=== PATIENT | female | born 1985 | race African-American/Black ===

== ENCOUNTER 2018-08-01 10:57 | Emergency (ER) | payer OTHER ==
[2018-08-01] MEDS ORDERED: diPHENhydraMINE PO* 50 MG PO ONE (12:00)
[2018-08-01] MEDS ORDERED: predniSONE TAB* 20 MG PO ONE (12:00)
--- NOTE | 2018-08-01 12:06 | ED ---
Allergic Reaction/Systemic - HPI Summary HPI Summary: This patient is a 32 year old F presenting to ED with a chief complaint of allergic reaction since yesterday morning. Patient woke up yesterday and had hives on right elbow and knees. Patient woke up today swollen and with hives all over. She is starting to feel pain. Patient does not recall eating or doing anything different in the past few days. Patient has not taken any new medications. Patient did not take Benadryl but used lotion without success. Patient reports previously having hives but this time is much worse. The patient rates the pain 5/10 in severity. Symptoms aggravated by nothing. Symptoms alleviated by nothing. Patient denies wheezing, SOB. PMHx of no DM, HTN , asthma, COPD. 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 Patient occasionally drinks alcohol, uses marijuana, and smokes tobacco. - History of Current Complaint Chief Complaint: EDAllergicReaction Time Seen by Provider: 08/01/18 11:53 Hx Obtained From: Patient Hx Last Menstrual Period: mirana Onset/Duration: Sudden Onset, Started days ago - 2, Still Present, Worse Since Timing: Constant Severity Initially: Mild Severity Currently: Moderate Pain Intensity: 5 Pain Scale Used: 0-10 Numeric Location: Diffuse Character: Pruritus, Pain, Hives Aggravating Factor(s): Nothing Alleviating Factor(s): Nothing Associated Signs And Symptoms: Positive: Negative - SOB, Rash. 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 a teen Infectious Disease History: No Infectious Disease History: Denies: Hx Hepatitis, Hx Human Immunodeficiency Virus (HIV), Traveled Outside the [place] in Last 30 Days - Social History Alcohol Use: Occasionally Hx Substance Use: Yes Substance Use Type: Reports: Marijuana Hx Tobacco Use: Yes Smoking Status (MU): Heavy Every Day Tobacco Smoker Type: Cigarettes Review of Systems Respiratory: Negative - Wheezing Negative: Shortness Of Breath Skin: Other - Pruritus Positive: Rash All Other Systems Reviewed And Are Negative: Yes Physical Exam - Summary Physical Exam Summary: Appearance: Well appearing, no pain distress Skin: generalized maculopapular rash Head/face: normal Eyes: EOMI, PREET ENT: normal Neck: supple, non-tender Respiratory: CTA, breath sounds present Cardiovascular: RRR, pulses symmetrical Abdomen: non-tender, soft Musculoskeletal: normal, strength/ROM intact Neuro: normal, sensory motor intact, A&Ox3 Triage Information Reviewed: Yes Vital Signs On Initial Exam: Initial Vitals Temp Pulse Resp BP Pulse Ox 98.5 F 84 16 117/70 96 08/01/18 11:09 08/01/18 11:09 08/01/18 11:09 08/01/18 11:09 08/01/18 11:09 Vital Signs Reviewed: Yes Diagnostics - Vital Signs Vital Signs Temp Pulse Resp BP Pulse Ox 08/01/18 11:09 98.5 F 84 16 117/70 96 - Laboratory Result Diagrams: 08/01/18 12:10 08/01/18 12:10 Lab Statement: Any lab studies that have been ordered have been reviewed, and results considered in the medical decision making process. Re-Evaluation - Re-Evaluation First Eval Re-Evaluation Time: 13:48 Change: Improved Comment: Patient reports feeling better with treatment. Patient will be discharged home. Patient understands and agrees with this plan. Allergic Reaction Course/Dx - Course Course Of Treatment: This patient is a 32 year old F presenting to ED with a chief complaint of allergic reaction since yesterday morning. In the ED course, patient received Benadryl and Deltasone. Blood work obtained. In the ED, patient is feeling better. Patient will be discharged with dx of allergic reaction. She is hemodynamically stable and safe for discharge. Strict return precautions given and she will otherwise follow up with her PCP. - Diagnoses Differential Diagnosis/HQI/PQRI: Positive: Local Allergic Reaction, Urticaria Provider Diagnoses: Allergic reaction Discharge - Sign-Out/Discharge Documenting (check all that apply): Patient Departure - Discharge Patient Received Moderate/Deep Sedation with Procedure: No - Discharge Plan Condition: Stable Disposition: HOME Prescriptions: diPHENhydraMINE PO* [Benadryl PO 25 MG TAB*] 25 mg PO TID PRN #20 tab MDD 3 PRN Reason: Allergy Symptoms predniSONE TAB* [Deltasone TAB*] 50 mg PO ONCE #4 tab Patient Education Materials: Allergies (ED) Referrals: Zeenat Almaraz MD [Primary Care Provider] - 3 Days Additional Instructions: Follow-up with your primary care physician in 3 days. RETURN TO THE ER FOR WORSENING OR CHANGING SYMPTOMS. - Billing Disposition and Condition Condition: STABLE Disposition: Home - Attestation Statements Document Initiated by Scribe: Yes Documenting Scribe: Familia Javier Provider For Whom Jhon is Documenting (Include Credential): Nicola Humphrey MD Scribe Attestation: Familia Ellis, scribed for Nicola Humphrey MD on 08/01/18 at 1355. Scribe Documentation Reviewed: Yes Provider Attestation: The documentation as recorded by the Familia posey accurately reflects the service I personally performed and the decisions made by , Nicola Humphrey MD Status of Scribe Document: Viewed
[2018-08-01 12:25] LABS: ABS Lymphocytes 1.3 10^3/ul (1.0-4.8); ABS Monocytes 0.3 10^3/ul (0-0.8); ABS Neutrophils 7.9 10^3/ul (1.5-7.7); Eosinophil % 0.3 %; Hematocrit 38 % (35-47); Hemoglobin 12.9 g/dL (12.0-16.0); Lymphocyte % 13.5 %; Mean Corpuscular HGB Conc 34 g/dL (31-36); Mean Corpuscular Hemoglobin 33 pg (27-31); Mean Corpuscular Volume 96 fL (80-97); Mean Platelet Volume 7.7 fL (7.4-10.4); Nucleated Red Blood Cells % 0.1; Platelet Count 308 10^3/uL (150-450); Red Blood Count 3.96 10^6 /uL (3.70-4.87); Red Cell Distribution Width 13 % (10.5-15); White Blood Count 9.5 10^3/uL (3.5-10.8)
[2018-08-01 12:41] LABS: Albumin/Globulin Ratio 1.7 (1-3); BUN/Creatinine Ratio 18.1 (8-20); Calcium 8.8 mg/dL (8.6-10.3); EGFR Non-African American 69.5 (>60); Globulin 2.4 g/dL (2-4); Potassium 3.9 mmol/L (3.5-5.0); Total Bilirubin 0.5 mg/dL (0.2-1.0); Total Protein 6.4 g/dL (6.4-8.9)
[2018-08-01 14:28] VITALS: BP 102/58
== END 2018-08-01 14:27 | disposition home or self-care (01) ==
LOC: ED 10:57
DX: L50.9 Urticaria, unspecified (principal); T78.40XA Allergy, unspecified, initial encounter; X58.XXXA Exposure to other specified factors, initial encounter; F17.210 Nicotine dependence, cigarettes, uncomplicated
CPT/HCPCS: 36415; 80053; 85025; 99282; A9270-GY; J7512

== ENCOUNTER 2019-01-28 08:37 | Emergency (ER) | payer OTHER ==
--- NOTE | 2019-01-28 09:06 | ED ---
Throat Pain/Nasal Congestion - HPI Summary HPI Summary: 33 year old female presents to the ED with a chief complaint of flu-like symptoms starting 3 days ago. Patient reports feeling sore throat, rhinorrhea, shortness of breath, intermittent cough, subjective fever, and headache. Pt denies any chills, erythema of eyes, CP, abdominal pain, N/V, dysuria, hematuria , myalgia, edema, rash, or dizziness. Her period has been normal. Patient smokes tobacco. 7 year old son currently has strep throat for several days. Patient has missed work secondary to current illness for the last 2 days. Hx of bipolar disorder. - History of Current Complaint Chief Complaint: EDFluSymptoms Time Seen by Provider: 01/28/19 08:49 Hx Obtained From: Patient Onset/Duration: Lasting Days - 3 days ago, Still Present Severity: Moderate Associated Signs And Symptoms: Positive: Hoarseness, Nasal Discharge. 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 Negative: Chills Negative: Erythema Positive: Sore Throat, Nasal Discharge Negative: Chest Pain Positive: Shortness Of Breath, Cough Negative: Abdominal Pain, Vomiting, Nausea Negative: discharge, hematuria Negative: Myalgia Negative: Rash Neurological: Negative - neg - dizziness All Other Systems Reviewed And Are Negative: Yes Physical Exam - Summary Physical Exam Summary: Constitutional: Well-developed, Well-nourished, Alert. (-) Distressed. Skin: Warm, Dry HENT: Normocephalic; Atraumatic. No sinus tenderness. Rhinorrhea. Eyes: Conjunctiva normal Neck: Musculoskeletal ROM normal neck. (-) JVD, (-) Stridor, (-) Tracheal deviation Cardio: Rhythm regular, rate normal, Heart sounds normal; Intact distal pulses; Radial pulses are 2+ and symmetric. (-) Murmur Pulmonary/Chest wall: Effort normal. (-) Respiratory distress, (-) Wheezes, (-) Rales Abd: Soft, (-) tenderness, (-) Distension, (-) Guarding, (-) Rebound Musculoskeletal: (-) Edema Lymph: (-) Cervical adenopathy Neuro: Alert, Oriented x3 Psych: Mood and affect Normal Triage Information Reviewed: Yes Vital Signs On Initial Exam: Initial Vitals Temp Pulse Resp BP Pulse Ox 98.7 F 88 19 121/84 97 01/28/19 08:45 01/28/19 08:45 01/28/19 08:45 01/28/19 08:45 01/28/19 08:45 Vital Signs Reviewed: Yes Procedures - Sedation Patient Received Moderate/Deep Sedation with Procedure: No Diagnostics - Vital Signs Vital Signs Temp Pulse Resp BP Pulse Ox 01/28/19 08:45 98.7 F 88 19 121/84 97 - Laboratory Lab Statement: Any lab studies that have been ordered have been reviewed, and results considered in the medical decision making process. EENT Course/Dx - Course Course Of Treatment: 33 year old female presents to the ED with a chief complaint of flu-like symptoms starting 3 days ago. Patient reports feeling sore throat, rhinorrhea, shortness of breath, intermittent cough, subjective fever, and headache. Pt denies any chills, erythema of eyes, CP, abdominal pain , N/V, dysuria, hematuria, myalgia, edema, rash, or dizziness. Her period has been normal. Patient smokes tobacco. 7 year old son currently has strep throat for several days. Patient has missed work secondary to current illness for the last 2 days. Hx of bipolar disorder. Upon physical exam, the patient was sniffling. No sinus tenderness or wheezes. Influenza A and B tests returned negative. Rapid Group A strep test returned positive. Diagnosis is strep pharyngitis, for which I prescribed penicillin. In the ED course the patient was given albuterol and penicillin v potassium. Patient will be discharged home with follow up from PCP. The patient is agreeable with this plan. - Diagnoses Provider Diagnoses: Strep pharyngitis Discharge ED - Sign-Out/Discharge Documenting (check all that apply): Patient Departure - discharge - Discharge Plan Condition: Stable Disposition: HOME Prescriptions: Penicillin VK TAB* [Penicillin VK 250 mg Tab*] 500 mg PO BID #10 tab Patient Education Materials: Strep Throat (ED) Forms: *Work Release Referrals: Zeenat Almaraz MD [Primary Care Provider] - Additional Instructions: Follow up with your primary care provider in 2-3 days. Return to the Emergency Department if you experience new or worsened symptoms. - Attestation Statements Document Initiated by Scribe: Yes Documenting Scribe: Quintin Drake Provider For Whom Jhon is Documenting (Include Credential): Shivam Jameson MD. Scribe Attestation: Quintin Ellis scribed for Shivam Jameson MD. on 01/28/19 at 1020. Status of Scribe Document: Ready
[2019-01-28 09:22] LABS: Rapid Strep Molecular POSITIVE (Negative)
[2019-01-28] MEDS ORDERED: Albuterol HFA INHALER* 8 gm MDI INH ONE (09:22)
[2019-01-28 09:30] LABS: Influenza A Molecular NEGATIVE (Negative); Influenza B Molecular NEGATIVE (Negative)
[2019-01-28] MEDS ORDERED: Penicillin VK TAB* 250 MG PO ONE (10:04)
[2019-01-28 10:20] VITALS: BP 119/76
== END 2019-01-28 10:19 | disposition home or self-care (01) ==
LOC: ED 08:37
DX: J02.0 Streptococcal pharyngitis (principal); R06.02 Shortness of breath; J34.89 Other specified disorders of nose and nasal sinuses; R05 Cough; F17.210 Nicotine dependence, cigarettes, uncomplicated
CPT/HCPCS: 87651; 99282; A9270-GY

== ENCOUNTER 2024-02-02 12:26 | Inpatient (IN) ==
[2024-02-02 13:19] LABS: ABS Basophils 0.1 10^3/uL (0.0-0.1); ABS Eosinophils 0.1 10^3/uL (0.0-0.5); ABS Lymphocytes 1.7 10^3/uL (1.0-4.8); ABS Neutrophils 10.9 10^3/uL (1.5-7.6); ABS Nucleated RBC 0.11 10^3/ul; Eosinophil % 0.8 %; Hematocrit 24.3 % (35-45); Hemoglobin 8.2 g/dL (11.5-14.3); Lymphocyte % 12.4 %; Mean Corpuscular Hemoglobin 29.9 pg (27-33); Mean Corpuscular Hgb Conc 33.7 g/dL (31-36); Mean Corpuscular Volume 88.9 fL (80-97); Nucleated Red Blood Cells % 0.8 %/100WBC (0.0-0.8); Platelet Count 306 10^3/uL (150-450); Red Blood Count 2.74 10^6/uL (3.63-4.92); Red Cell Distribution Width 14.3 % (12-17); White Blood Count 13.8 10^3/uL (3.8-11.8)
[2024-02-02 13:38] LABS: Urine Benzodiazepine Screen None Detected (None Detect); Urine Cannabinoids Screen Presumptive Positive (None Detect); Urine Opiates Screen None Detected (None Detect)
[2024-02-02 13:42] LABS: Urine Creatinine Concentration 137.84 mg/dL (20.00-320.00); Urine TP Creat Ratio 0.26 mg/mg
[2024-02-02] MEDS ORDERED: Lidocaine 1% VIAL 10 MG/ML 30 ML VIAL INJ PRN (13:59)
[2024-02-02 14:11] LABS: Albumin 3.3 g/dL (3.2-5.2); Albumin/Globulin Ratio 1.3 (1-3); Calcium 8.8 mg/dL (8.6-10.3); Creatinine, Serum 0.8 mg/dL (0.51-0.95); Globulin 2.6 g/dL (2-4); Potassium 4.5 mmol/L (3.5-5.0); Total Bilirubin 0.3 mg/dL (0.2-1.0); Total Protein 5.9 g/dL (6.4-8.9); eGFR CKD-EPI 97.3 (>60)
[2024-02-02] MEDS: Buffered Lidocaine 1% SYRIN 1 ml INTRADERM ONE (15:23)
[2024-02-02] MEDS: Oxytocin in LR 20,000 MILLI.UNIT/1,000 ML BAG IV SCH (15:48)
[2024-02-02] MEDS: Penicillin G Potassium IV 5,000,000 UNITS in NS 0.9% 100 ml BAG 100 ML IVPB ONE (15:48)
[2024-02-02] MEDS: Lactated Ringers 1000 ml BAG 1,000 ML IV SCH (15:48)
[2024-02-02] MEDS: Penicillin G Potassium IV 3,000,000 UNITS in NS 0.9% 100 ml BAG 100 ML IVPB SCH (21:24)
[2024-02-02] MEDS: Lactated Ringers 1000 ml BAG 1,000 ML IV ONE (23:24)
[2024-02-03] MEDS ORDERED: Morphine PF AMP (0.5MG/ML) 5 MG/10 ML AMP ONE (00:57)
[2024-02-03] MEDS ORDERED: Acetaminophen IV 1 GM/100ML 1,000 MG/100 ML BAG IV PRN (01:53)
[2024-02-03] MEDS ORDERED: Naloxone 0.4 mg VIAL 0.4 mg/ml 1 ml VIAL IV PUSH PRN (01:53)
[2024-02-03] MEDS ORDERED: Ondansetron 4 mg VIAL 2 MG/ML 2 ml VIAL IV PRN (01:53)
[2024-02-03] MEDS ORDERED: Sodium Citrate/Citric Acid LIQ 15 ML UDC PO PRN (01:55)
[2024-02-03] MEDS ORDERED: Phenylephrine 40 mcg/mL 10mL (400mcg) SYRINGE IV PUSH PRN ×2 (01:55)
[2024-02-03] MEDS: OBEPIDURAL (200 ML) 200 ML EPIDURAL ONE (02:03)
[2024-02-03 02:31] LABS: Urine Appearance Clear; Urine Bilirubin Negative (Negative); Urine Blood Negative (Negative); Urine Color Colorless; Urine Glucose Negative (Negative); Urine Ketones Negative (Negative); Urine Nitrite Negative (Negative); Urine Protein Negative (Negative); Urine Urobilinogen Negative (Negative); Urine pH 6.5 (5.0-8.0)
[2024-02-03] MEDS: Lidocaine 1.5% EPI 1:200,000 30 ML SDV ONE ×2 (04:38→04:39)
[2024-02-03] MEDS: OLANZAPINE SAMIDORPHAN PO SCH (04:38)
[2024-02-03] MEDS: Phenylephrine 40 mcg/mL 10mL (400mcg) SYRINGE ONE (04:38)
[2024-02-03] MEDS: Lidocaine 1% VIAL 10 MG/ML 30 ML VIAL ONE (04:39)
[2024-02-03] MEDS: Lidocaine 2% w/ EPI 1:200,000 MPF 20 ML SDV VIAL ONE (04:39)
[2024-02-03] MEDS: OBEPIDURAL (200 ML) 200 ML EPIDURAL SCH (04:43)
[2024-02-03] MEDS: Penicillin G Potassium IV 3,000,000 UNITS in NS 0.9% 100 ml BAG 100 ML IVPB SCH (05:39)
[2024-02-03] MEDS: Lactated Ringers 1000 ml BAG 1,000 ML IV ONE (16:33)
[2024-02-03] MEDS: Lactated Ringers 1000 ml BAG 1,000 ML IV SCH (16:33)
[2024-02-03] MEDS: Lidocaine PATCH 5% PATCH TRANSDERM SCH (17:35)
[2024-02-03] MEDS ORDERED: Glycerin ADULT 2.4 gm SUPP PR PRN (18:07)
[2024-02-03] MEDS ORDERED: Lactated Ringers 1000 ml BAG 1,000 ML IV SCH (19:00)
[2024-02-04 07:09] LABS: ABS Basophils 0.1 10^3/uL (0.0-0.1); ABS Eosinophils 0.1 10^3/uL (0.0-0.5); ABS Lymphocytes 2.5 10^3/uL (1.0-4.8); ABS Monocytes 0.9 10^3/uL (0.0-0.9); ABS Neutrophils 9.2 10^3/uL (1.5-7.6); ABS Nucleated RBC 0.04 10^3/ul; Hematocrit 22.1 % (35-45); Hemoglobin 7.5 g/dL (11.5-14.3); Lymphocyte % 19.6 %; Mean Corpuscular Hgb Conc 33.7 g/dL (31-36); Mean Platelet Volume 7.8 fL (7.5-11.2); Nucleated Red Blood Cells % 0.3 %/100WBC (0.0-0.8); Platelet Count 278 10^3/uL (150-450); Red Blood Count 2.49 10^6/uL (3.63-4.92); Red Cell Distribution Width 15.3 % (12-17); White Blood Count 12.8 10^3/uL (3.8-11.8)
[2024-02-04 12:31] LABS: Albumin/Globulin Ratio 1.3 (1-3); Calcium 8.5 mg/dL (8.6-10.3); Creatinine, Serum 0.79 mg/dL (0.51-0.95); Globulin 2.4 g/dL (2-4); Potassium 4.6 mmol/L (3.5-5.0); Total Bilirubin 0.2 mg/dL (0.2-1.0); Total Protein 5.4 g/dL (6.4-8.9); eGFR CKD-EPI 98.7 (>60)
[2024-02-04] MEDS: Iron Sucrose 200 MG in NS 0.9% 100 ml BAG 100 ML IVPB ONE (13:15)
[2024-02-04] MEDS: Dibucaine 1% OINT 28.35 GM TUBE PR PRN (19:31)
[2024-02-04] MEDS: Witch Hazel PAD JAR TOPICAL PRN (19:32)
[2024-02-05 15:14] VITALS: BP 148/49
== END 2024-02-05 16:25 | disposition home or self-care (01) | DRG 560 ==
LOC: MCHOBOUT 12:26 → MCHOB 13:59
PROVIDERS: ADMIT Midwife; ATTEND Midwife